=== PATIENT | male | born 1990 | race Caucasian/White ===

== ENCOUNTER 2022-01-01 16:29 | Emergency (ER) | payer BC ==
[2022-01-01] MEDS: Lactated Ringers 1,000 ML IV ONE (17:25)
[2022-01-01] MEDS: Sodium Chloride 0.9% 10 ML Syringe FLUSH PRN (17:25)
[2022-01-01 17:43] LABS: CHLORIDE,CL 108 mmol/L (98-107); SODIUM,NA 142 mmol/L (136-145)
[2022-01-01 17:44] LABS: ESTIMATED GFR 124 mL/min (>=60)
[2022-01-01] MEDS ORDERED: Rabies Vaccine (Avian) 2.5 Unit Inj Kit IM ONE (17:54)
[2022-01-01] MEDS ORDERED: Rabies Vaccine (Avian) 2.5 Unit Inj Kit ONE (18:32)
[2022-01-01 20:33] VITALS: BP 177/84; PULSE 50
== END 2022-01-01 19:50 | disposition home or self-care (01) ==
LOC: LL.ED 16:29
DX: T14.8XXA Other injury of unspecified body region, initial encounter (principal); F17.210 Nicotine dependence, cigarettes, uncomplicated; Z23 Encounter for immunization; W57.XXXA Bitten or stung by nonvenomous insect and other nonvenomous arthropods, initial encounter
CPT/HCPCS: 36415; 80053; 83735; 85025; 86140; 90375; 90675; 96360; 96372; 99283-25; J3490; J7120